=== PATIENT | male | born 1995 | race Caucasian/White ===

== ENCOUNTER 2017-08-21 15:48 | Emergency (ER) | payer MEDICAID, OTHER ==
[~2017-08-21] VITALS: Ht 170.2 cm; Wt 75.0 kg
[2017-08-21 16:25] VITALS: BP 143/69
[2017-08-21] MEDS ORDERED: PENI500T2 PO (20:48)
== END 2017-08-21 21:03 | disposition home or self-care (01) ==
LOC: ER 15:49
DX: J02.9 Acute pharyngitis, unspecified (principal)
CPT/HCPCS: 99283

== ENCOUNTER 2019-06-24 15:51 | Emergency (ER) | payer BC, MEDICAID, OTHER ==
[~2019-06-24] VITALS: Ht 180.3 cm; Wt 81.0 kg
[2019-06-24 16:16] VITALS: BP 148/74
[2019-06-24] MEDS ORDERED: PRED20TA PO (16:22)
[2019-06-24] MEDS ORDERED: dexamethasone 4mg tablet PO ONE (16:25)
== END 2019-06-24 16:37 | disposition home or self-care (01) ==
LOC: ER 15:51
DX: L23.7 Allergic contact dermatitis due to plants, except food (principal)
CPT/HCPCS: 99283